=== PATIENT | male | born 1950 | race Caucasian/White ===

== ENCOUNTER 2017-02-06 09:58 | Day surgery (SDC) | payer BC ==
[2017-02-06] VITALS (10 sets, daily range): BP systolic 114–149; BP diastolic 68–81; PULSE 50–81; TEMP 97.8
[~2017-02-06] VITALS: Ht 182.9 cm; Wt 82.1 kg
[~2017-02-06 09:58] MED LIST: ANTIVERT 25MG25 MG PO; NO HOME MEDICATIONS; VALIUM 5MG T5 MG/TAB PO
[2017-02-06 10:35] LABS: HEMATOCRIT 42.1 % (42.0-52.0); HEMOGLOBIN 14.5 g/dl (13.5-18.0); MEAN CELL VOLUME 93 fl (80.0-100.0); MEAN CORPUSCULAR HEMOGLOBIN 32 pg (27.0-31.0); MEAN CORPUSCULAR HGB CONC 34 g/dl (33.0-37.0); MEAN PLATELET VOLUME 9.3 fl (7.4-10.4); PLATELET COUNT 256 K/mm3 (130-400); RED BLOOD COUNT 4.53 M/mm3 (4.20-5.60); REDCELL DISTRIBUTION WIDTH-CV 12.3 % (11.5-14.5); WHITE BLOOD COUNT 5.2 K/mm3 (4.8-10.8)
[2017-02-06 10:40] LABS: PROTHROMBIN TIME 10.8 SECONDS (9.7-12.8)
[2017-02-06] MEDS ORDERED: ASPIRIN 81M81 MG/TA2 PO (10:48)
[2017-02-06 11:10] LABS: CALCIUM 9.2 mg/dL (8.4-10.2); CREATININE, serum 0.84 mg/dL (0.66-1.25); POTASSIUM 4.4 mmol/L (3.4-5.0)
== END 2017-02-06 16:29 | disposition home or self-care (01) ==
LOC: COL.CAR 09:58
PROVIDERS: Internal Medicine Cardiovascular Disease
DX: R94.39 Abnormal result of other cardiovascular function study (principal); R07.89 Other chest pain; R06.02 Shortness of breath; E78.5 Hyperlipidemia, unspecified; J44.9 Chronic obstructive pulmonary disease, unspecified; Z87.891 Personal history of nicotine dependence; J84.10 Pulmonary fibrosis, unspecified; Z80.3 Family history of malignant neoplasm of breast
CPT/HCPCS: C1760; C1894; J2250; J3010; Q9967

== ENCOUNTER 2017-08-14 08:05 | Day surgery (SDC) | payer BC ==
[~2017-08-14] VITALS: Ht 182.9 cm; Wt 79.2 kg
[~2017-08-14 08:05] MED LIST changes: +ASPIRIN 81M81 MG/TA2 PO
[2017-08-14 08:24] VITALS: BP 114/67; PULSE 77; TEMP 97.3
[2017-08-14 10:00] VITALS: BP 110/65; PULSE 81; TEMP 99.3
[2017-08-14 10:15] VITALS: BP 144/61; PULSE 89
[2017-08-14 10:30] VITALS: BP 114/64; PULSE 80
[2017-08-14 10:45] VITALS: BP 117/58; PULSE 80
[2017-08-14 11:15] VITALS: BP 118/62; PULSE 85
== END 2017-08-14 11:35 | disposition home or self-care (01) ==
LOC: SDCO 08:05
DX: C34.91 Malignant neoplasm of unspecified part of right bronchus or lung (principal); Z87.891 Personal history of nicotine dependence; J84.10 Pulmonary fibrosis, unspecified; J44.9 Chronic obstructive pulmonary disease, unspecified; I38 Endocarditis, valve unspecified
CPT/HCPCS: J2704; J7120

== ENCOUNTER → 2017-10-10 | Outpatient (CLI) | payer MEDICARE, BC ==
[2017-10-10 16:23] LABS: C-REACTIVE PROTEIN 4.1 mg/dL (0.0-0.9)
== END ==
LOC: COL.LAB 15:10
PROVIDERS: Internal Medicine Pulmonary Disease
DX: J44.9 Chronic obstructive pulmonary disease, unspecified (principal)

== ENCOUNTER 2017-12-11 10:58 | Emergency (ER) | payer MEDICARE, BC ==
[~2017-12-11] VITALS: Ht 182.9 cm; Wt 70.5 kg
[2017-12-11 11:04] VITALS: TEMP 98.1
[2017-12-11 11:42] LABS: BASO % 0.4 % (0.0-2.0); EOS # 0.4 (0.0-0.7); GRAN # 6.6 (1.4-6.5); GRAN % 81.3 % (42.2-75.2); HEMATOCRIT 38.5 % (42.0-52.0); HEMOGLOBIN 12.7 g/dl (13.5-18.0); LYMPH # 0.3 (1.2-3.4); MEAN CELL VOLUME 101 fl (80.0-100.0); MEAN CORPUSCULAR HEMOGLOBIN 33 pg (27.0-31.0); MEAN CORPUSCULAR HGB CONC 33 g/dl (33.0-37.0); MEAN PLATELET VOLUME 9.2 fl (7.4-10.4); MONO # 0.7 (0.1-0.6); MONO % 8.8 % (1.7-9.3); PLATELET COUNT 268 K/mm3 (130-400); RED BLOOD COUNT 3.82 M/mm3 (4.20-5.60); REDCELL DISTRIBUTION WIDTH-CV 13.3 % (11.5-14.5)
[2017-12-11 11:52] LABS: ALBUMIN 3.8 gm/dL (3.5-5.0); BILIRUBIN,TOTAL 0.9 mg/dL (0.0-1.0); CALCIUM 9.3 mg/dL (8.4-10.2); CREATININE, serum 0.81 mg/dL (0.66-1.25); TOTAL PROTEIN 7.1 gm/dL (6.4-8.2)
[2017-12-11 16:15] VITALS: BP 95/60; PULSE 71
== END 2017-12-11 16:15 | disposition short-term general hospital (02) ==
LOC: COL.ER 10:58
PROVIDERS: Family Medicine
DX: J18.1 Lobar pneumonia, unspecified organism (principal); J84.10 Pulmonary fibrosis, unspecified; Z85.118 Personal history of other malignant neoplasm of bronchus and lung
CPT/HCPCS: J0456; J0696; J7030; J7050

== ENCOUNTER 2018-03-21 11:22 | Emergency (ER) | payer MEDICARE, BC ==
[~2018-03-21] VITALS: Ht 182.9 cm; Wt 68.2 kg
[2018-03-21 11:22] VITALS: TEMP 98
[2018-03-21 12:02] LABS: BASO % 0.3 % (0.0-2.0); EOS # 0.2 (0.0-0.7); GRAN # 6.2 (1.4-6.5); GRAN % 81.6 % (42.2-75.2); HEMOGLOBIN 14.2 g/dl (13.5-18.0); LYMPH # 0.5 (1.2-3.4); LYMPH % 6.4 % (20.0-51.0); MEAN CELL VOLUME 98 fl (80.0-100.0); MEAN CORPUSCULAR HEMOGLOBIN 32 pg (27.0-31.0); MEAN CORPUSCULAR HGB CONC 33 g/dl (33.0-37.0); MEAN PLATELET VOLUME 9.3 fl (7.4-10.4); MONO # 0.6 (0.1-0.6); PLATELET COUNT 233 K/mm3 (130-400); RED BLOOD COUNT 4.41 M/mm3 (4.20-5.60); REDCELL DISTRIBUTION WIDTH-CV 14.1 % (11.5-14.5)
[2018-03-21 12:03] LABS: ALBUMIN 3.6 gm/dL (3.5-5.0); BILIRUBIN,TOTAL 0.7 mg/dL (0.0-1.0); CREATININE, serum 0.93 mg/dL (0.66-1.25); MAGNESIUM 1.9 mg/dL (1.6-2.3); PHOSPHOROUS 3.4 mg/dL (2.5-4.5); POTASSIUM 4.2 mmol/L (3.4-5.0); TOTAL PROTEIN 6.7 gm/dL (6.4-8.2)
[2018-03-21 12:17] LABS: TROPONIN-I 0.049 ng/mL (0.000-0.034)
[2018-03-21 12:33] LABS: TSH w REFLEX 4.69 uIU/mL (0.465-4.680)
[2018-03-21 14:09] LABS: ARTERIAL BLD GAS O2 SATURATION 93.2 % (92-100); ARTERIAL BLD GAS TCO2 CT 29.9; ARTERIAL BLOOD GAS BASE EXCESS 2.5 (-2-2); ARTERIAL BLOOD GAS HCO3 28.4 meq/L (22-26); ARTERIAL BLOOD GAS PCO2 49.1 mmHg (35-45); ARTERIAL BLOOD GAS PO2 70.2 mmHg (80-100); ARTERIAL BLOOD GAS pH 7.38 (7.35-7.45)
[2018-03-21 15:59] LABS: ARTERIAL BLD GAS O2 SATURATION 93.8 % (92-100); ARTERIAL BLD GAS TCO2 CT 30.7; ARTERIAL BLOOD GAS BASE EXCESS 3.5 (-2-2); ARTERIAL BLOOD GAS HCO3 29.2 meq/L (22-26); ARTERIAL BLOOD GAS PCO2 48.6 mmHg (35-45); ARTERIAL BLOOD GAS PO2 70.8 mmHg (80-100)
[2018-03-21 17:39] VITALS: BP 86/57; PULSE 76
== END 2018-03-21 17:40 | disposition short-term general hospital (02) ==
LOC: COL.ER 11:22
PROVIDERS: Emergency Medicine
DX: I48.91 Unspecified atrial fibrillation (principal); R09.02 Hypoxemia; R74.8 Abnormal levels of other serum enzymes
CPT/HCPCS: J1644; J2930; J7030; Q9967